=== PATIENT | male | born 1970 | race Hispanic/Latino ===

== ENCOUNTER 2018-04-13 11:38 | Inpatient (IN) | payer BC, OTHER ==
[~2018-04-13] VITALS: Ht 167.6 cm; Wt 101.2 kg
[~2018-04-13 11:38] MED LIST: ATORVASTATIN CA20 MG PO; DESLORATADINE5 MG; FENOFIBRATE145 MG PO; HYDROCHLOROTHIA25 MG PO; LANTUS 3ML100 UNITS/ SC; LISINOPRIL10 MG PO; METFORMIN HCL500 MG PO; METOPROLOL SUCC50 MG PO; METOPROLOL TART50 MG PO; MONTELUKAST SOD10 MG PO
[2018-04-13] MEDS ORDERED: SODIUM CHLORIDE 0.9% 1000ML 1,000 ML IV STA (11:46)
[2018-04-13] MEDS ORDERED: ONDANSETRON HCL INJ 2MG/ML 2ML 2 MG/ML VIAL IV STA (11:46)
[2018-04-13] MEDS ORDERED: METRONIDAZOLE 500MG/NS 100ML 100 ML IV ONE (12:00)
[2018-04-13] MEDS ORDERED: CEFEPIME 2 GM/NS 0.9% 100 ML 100 ML IV ONE (12:00)
[2018-04-13] MEDS ORDERED: PANTOPRAZOLE 40 MG 10ML VIAL IV NR (12:00)
[2018-04-13] MEDS ORDERED: MORPHINE SULFATE 5 MG/ML VIAL IV ONE (12:00)
[2018-04-13] MEDS ORDERED: MORPHINE SULFATE INJ 4 MG/ML INJ 1ML IV NR (12:15)
[2018-04-13 12:16] LABS: BASOPHILS # (AUTO) 0.1 (0.0-0.1); BASOPHILS % 0.4 % (0.0-1.0); EOSINOPHILS # (AUTO) 0.1 (0.0-0.4); EOSINOPHILS % 0.3 % (0.0-6.0); HEMATOCRIT 45.3 % (38.2-49.6); LYMPHOCYTES # (AUTO) 1.7 (1.0-3.2); MEAN CORPUSCULAR HEMOGLOBIN 27.6 pg (28-32); MEAN CORPUSCULAR HGB CONC 33.1 g/dL (31-35); MEAN CORPUSCULAR VOLUME 83.4 fL (81-99); MONOCYTES # (AUTO) 0.7 (0.2-0.8); NEUTROPHILS # (AUTO) 14.6 (2.1-6.9); NEUTROPHILS % 84.8 % (38.7-80.0); PLATELET COUNT 228 x10e3/uL (140-360); RED BLOOD COUNT 5.43 x10e6/uL (4.3-5.7); RED CELL DISTRIBUTION WIDTH 14.1 % (11.7-14.4)
[2018-04-13 12:32] LABS: INR 0.97; PROTHROMBIN TIME 13.8 seconds (11.9-14.5)
[2018-04-13 12:33] LABS: PARTIAL THROMBOPLASTIN TIME 37.1 seconds (23.8-35.5)
[2018-04-13 12:40] LABS: ALANINE AMINOTRANSFERASE 27 IU/L (0-55); ALBUMIN 3.6 g/dL (3.5-5.0); ALBUMIN/GLOBULIN RATIO 0.8 (0.8-2.0); ALKALINE PHOSPHATASE 93 IU/L (40-150); AMYLASE 54 U/L (25-125); ANION GAP 18.7 mmol/L (8-16); BLOOD UREA NITROGEN 13 mg/dL (7-26); BUN/CREATININE RATIO 10 (6-25); CALCIUM 9.6 mg/dL (8.4-10.2); CARBON DIOXIDE 21 mmol/L (22-29); CHLORIDE 96 mmol/L (98-107); CREATINE KINASE 99 IU/L (30-200); CREATININE, SERUM 1.24 mg/dL (0.72-1.25); EST GLOMERULAR FILTRATION RATE > 60 ML/MIN (60-); GLUCOSE 188 mg/dL (74-118); LIPASE 31 U/L (8-78); MAGNESIUM 2.1 MG/DL (1.3-2.1); POTASSIUM 3.7 mmol/L (3.5-5.1); SODIUM 132 mmol/L (136-145)
--- NOTE | 2018-04-13 13:09 | Diagnostic Imaging Report ---
Examination: Single AP view of the chest. COMPARISON: None. INDICATION: abdominal pain DISCUSSION: Lines/tubes: None. Lungs: The lungs are well inflated and clear. No pneumonia or pulmonary edema. Pleura: No pleural effusion or pneumothorax. Heart and mediastinum: The heart and the mediastinum are unremarkable. Bones and soft tissues: No acute bony abnormalities. IMPRESSION: 1. No acute cardiopulmonary abnormalities. Signed by: Dr. Vinny Early M.D. on 04/13/2018 1:06 PM
--- NOTE | 2018-04-13 13:59 | Diagnostic Imaging Report ---
EXAMINATION: CT of the abdomen and pelvis with contrast. TECHNIQUE: Helical CT images of the abdomen and pelvis were performed from the lung bases to the lesser trochanters after the intravenous administration of 150 cc of Isovue 300 and the oral administration of none. Coronal and sagittal reformatted images were obtained.Dose modulation, iterative reconstruction, and/or weight based adjustment of the mA/kV was utilized to reduce the radiation dose to as low as reasonably achievable. COMPARISON: None. CLINICAL HISTORY:Abdominal pain, nausea and vomiting DISCUSSION: ABDOMEN/PELVIS: LOWER THORAX:Unremarkable. HEPATOBILIARY: No focal hepatic lesions. No intra-or extrahepatic biliary ductal dilation. The gallbladder is normal. SPLEEN: No splenomegaly. PANCREAS: Peripancreatic inflammatory change no fluid collection. ADRENALS: No adrenal nodules. KIDNEYS/URETERS: 6 mm calculus right kidney. Ill-defined 1.2 cm hypodensity right kidney likely cyst. Scarring of the inferior pole of the left kidney. 2 mm calculus inferior pole left kidney. PELVIC ORGANS/BLADDER: The bladder is normal. PERITONEUM/RETROPERITONEUM: No free air or fluid. LYMPH NODES: No intra-abdominal, retroperitoneal, pelvic or inguinal lymphadenopathy. VESSELS: The celiac trunk,superior and inferior mesenteric and bilateral renal arteries are patent The portal, superior mesenteric and splenic veins are patent. GI TRACT: Colonic diverticulosis. No inflammatory change. BONES AND SOFT TISSUE: No bony destructive lesions. Fat-containing left inguinal hernia. IMPRESSION: Acute interstitial pancreatitis. No fluid collection. Bilateral nonobstructing renal calculi. Signed by: Dr. Vinny Early M.D. on 04/13/2018 1:56 PM
[2018-04-13 14:27] LABS: BILIRUBIN,URINE NEGATIVE (NEGATIVE); CLARITY,URINE SL CLOUDY (CLEAR); COLOR,URINE YELLOW (YELLOW); KETONES,URINE 1+ (NEGATIVE); LEUKOCYTE ESTERASE ,URINE NEGATIVE (NEGATIVE); NITRITE,URINE NEGATIVE (NEGATIVE); PROTEIN,URINE DIPSTICK NEGATIVE (NEGATIVE); URINE UROBILINOGEN 0.2 mg/dL (0.2 - 1)
[2018-04-13] MEDS ORDERED: HYDROMORPHONE 1MG/1ML INJ IV PRN (14:30)
[2018-04-13 14:36] LABS: AMORPHOUS SEDIMENT,URINE FEW (FEW)
[2018-04-13] MEDS ORDERED: IOPAMIDOL 370 MG/ML 200 ML INFUS..BTL INJ ONE (14:37)
[2018-04-13] MEDS ORDERED: SODIUM CHLORIDE 0.9% 50ML 50 ML ONE (14:37)
[2018-04-13 14:41] LABS: CHOL/HDL RATIO 11.3 (3.9-4.7); CHOLESTEROL 418 MD/DL (0-199); HDL CHOLESTEROL 37 MG/DL (40-60); TRIGLYCERIDES 864 MG/DL (0-149)
[2018-04-13] MEDS: HYDROMORPHONE 2MG/ML 2 MG/ML ML IV PRN ×2 (15:38→21:38)
[2018-04-13] MEDS: ONDANSETRON HCL INJ 2MG/ML 2ML 2 MG/ML VIAL IV PRN ×2 (15:38→21:38)
[2018-04-13] MEDS: SODIUM CHLORIDE 0.9% 1000ML 1,000 ML IV SCH ×2 (15:38→22:43)
--- OUTSIDE RECORDS SUMMARY | 2018-04-13 16:14 | XMS REPORT ---
Author Author [facility] Address Unknown Phone Unavailable Care Team Providers Care Communication Technician Name Role Phone Karyn TIJERINA Unavailable Unavailable Problems This patient has no known problems. Allergies, Adverse Reactions, Alerts This patient has no known allergies or adverse reactions. Medications This patient has no known medications. Results Test Description Test Time Test Comments Text Results Atomic Results Result Comments CT ABDOMEN/PELVIS W 2018-04-13 13:52:00 [facility] [address] [address] Patient Name: REG ESPINOSA MR #: [id number] : 1970 Age/Sex: 47/M Req #: [id number] Adm Physician: Ordered by: FLORIAN TIJERINA MD Report #: [id number] Location: ER Room/Bed: Procedure: [id number] CT/CT ABDOMEN/PELVIS W Exam Date: 04/13/18 Exam Time: 1323 REPORT STATUS: Signed EXAMINATION: CT of the abdomen and pelvis with contras t. TECHNIQUE: Helical CT images of the abdomen and pelvis were performed from the lung bases to the lesser trochanters after the intravenous administration of 150 cc of Isovue 300 and the oral administration of none. Coronal and sagittal reformatted images were obtained.Dose modulation, iterative reconstruction, and/or weight based adjustment of the mA/kV was utilized to reduce the radiation dose to as low as reasonably achievable. COMPARISON: None. CLINICAL HISTORY:Abdominal pain, nausea and vomiting DISCUSSION: ABDOMEN/PELVIS: LOWER THORAX:Unremarkable. HEPATOBILIARY: No focal hepatic lesions. No intra-or extrahepatic biliary ductal dilation. The gallbladder is normal. SPLEEN: No splenomegaly. PANCREAS: Peripancreatic inflammatory change no fluid collection. ADRENALS: No adrenal nodules. KIDNEYS/URETERS: 6 mm calculus right kidney. Ill-defined 1.2 cm hypodensity right kidney likely cyst. Scarring of the infer ior pole of the left kidney. 2 mm calculus inferior pole left kidney. PELVIC ORGANS/BLADDER: The bladder is normal. PERITONEUM/RETROPERITONEUM: No free air or fluid. LYMPH NODES: No intra-abdominal, retroperitoneal, pelvic or inguinal lymphadenopathy. VESSELS: The celiac trunk,superior and inferior mesenteric and bilateral renal arteries are patent The portal, superior mesenteric and splenic veins are patent. GI TRACT: Colonic diverticulosis. No inflammatory change. BONES AND SOFT TISSUE: No bony destructive lesions. Fat-containing left inguinal hernia. IMPRESSION: Acute interstitial pancreatitis. No fluid collection. Bilateral nonobstructing renal calculi. Signed by: Dr. Daisha Saenz M.D. on 04/13/2018 1:56 PM Dictated By: DAISHA SAENZ MD 1356 Transcribed By: VICTORINO on 04/13/18 1356 COPY TO: FLORIAN TIJERINA MD CHEST SINGLE (PORTABLE) 2018-04-13 13:05:00 [address] [address] Patient Name: REG ESPINOSA MR #: [id number] : 1970 Age/Sex: 47/M Req #: [id number] Adm Physician: Ordered by: FLORIAN TIJERINA MD Report #: [id number] Location: ER Room/Bed: Procedure: [id number] DX/CHEST SINGLE (PORTABLE) Exam Date: 04/13/18 Exam Time: 1150 REPORT STATUS: Signed Examination: Single AP view of the chest. GEORGE RISON: None. INDICATION: abdominal pain DISCUSSION: Lines/tubes: None. Lungs: The lungs are well inflated and clear. No pneumonia or pulmonary edema. Pleura: No pleural effusion or pneumothorax. Heart and mediastinum: The heart and the mediastinum are unremarkable. Bones and soft tissues: No acute bony abnormalities. IMPRESSION: 1. No acute cardiopulmonary abnormalities. Signed by: Dr. Daisha Saenz M.D. on 04/13/2018 1:06 PM Dictated By: DAISHA SAENZ MD 1306 Transcribed By: VICTORINO on 04/13/18 1306 COPY TO: FLORIAN TIJERINA MD
[2018-04-13] MEDS ORDERED: BENICAR20 MG PO (18:29)
[2018-04-13] MEDS ORDERED: METFORMIN HCL500 MG PO (18:29)
[2018-04-13] MEDS: METRONIDAZOLE 500MG/NS 100ML 100 ML IV SCH (18:29)
[2018-04-13] MEDS ORDERED: LEXAPRO10 MG PO (18:29)
[2018-04-13] MEDS ORDERED: farxiga PO (18:29)
[2018-04-13] MEDS ORDERED: LOSARTAN-HCTZ1 EACH PO (20:27)
--- NOTE | 2018-04-13 20:31 | NUR ---
REPORT CALLED TO RN ROOM 110.
[2018-04-13 20:40] VITALS: BP 153/89
[2018-04-13 20:55] VITALS: BP 153/89
--- NOTE | 2018-04-13 20:55 | NUR ---
PATIENT IS A NEW ADMIT THAT ARRIVED VIA STRETCHER. PATIENT IS AWAKE AND TALKING. PATIENT HAS BEEN HELPED INTO THE BED. BED IS IN LOWEST POSITION AND CALL ALLISON IS WITHIN REACH. WILL CONTINUE TO MONITOR PATIENT.
[2018-04-13 21:16] LABS: CREATINE KINASE 99 IU/L (30-200)
--- NOTE | 2018-04-13 21:30 | NUR ---
PATIENT IS ASKING IF HE CAN SUCK ON ICE CHIPS TO HELP WITH DRY MOUTH. GI DOCTOR NOTIFIED. RECEIVED NEW ORDER TO ALLOW PATIENT TO SUCK ON ICE CHIPS AND SPIT OUT WATER FOR DRY MOUTH.
[2018-04-13] MEDS ORDERED: FENOFIBRATE 145 MG TAB PO STA (22:36)
[2018-04-13] MEDS: CEFEPIME 2 GM/NS 0.9% 100 ML 100 ML IV SCH (22:42)
[2018-04-14] VITALS (7 sets, daily range): BP systolic 122–154; BP diastolic 67–89
[2018-04-14] MEDS: METRONIDAZOLE 500MG/NS 100ML 100 ML IV SCH ×4 (00:45→18:31)
[2018-04-14] MEDS: SODIUM CHLORIDE 0.9% 1000ML 1,000 ML IV SCH ×7 (05:42→21:41)
[2018-04-14 06:33] LABS: BASOPHILS % 0.3 % (0.0-1.0); EOSINOPHILS # (AUTO) 0.2 (0.0-0.4); EOSINOPHILS % 1.2 % (0.0-6.0); HEMATOCRIT 39.8 % (38.2-49.6); LYMPHOCYTES # (AUTO) 1.3 (1.0-3.2); LYMPHOCYTES % 9.9 % (18.0-39.1); MEAN CORPUSCULAR HEMOGLOBIN 27.5 pg (28-32); MEAN CORPUSCULAR HGB CONC 32.7 g/dL (31-35); MEAN CORPUSCULAR VOLUME 84.3 fL (81-99); MONOCYTES # (AUTO) 0.7 (0.2-0.8); MONOCYTES % 5.6 % (4.4-11.3); NEUTROPHILS # (AUTO) 10.4 (2.1-6.9); NEUTROPHILS % 82.5 % (38.7-80.0); PLATELET COUNT 184 x10e3/uL (140-360); RED BLOOD COUNT 4.72 x10e6/uL (4.3-5.7); RED CELL DISTRIBUTION WIDTH 14.3 % (11.7-14.4)
[2018-04-14 06:47] LABS: ALANINE AMINOTRANSFERASE 18 IU/L (0-55); ALBUMIN 2.7 g/dL (3.5-5.0); ALBUMIN/GLOBULIN RATIO 0.8 (0.8-2.0); ALKALINE PHOSPHATASE 81 IU/L (40-150); AMYLASE 43 U/L (25-125); ANION GAP 15.6 mmol/L (8-16); BLOOD UREA NITROGEN 13 mg/dL (7-26); BUN/CREATININE RATIO 14 (6-25); CALCIUM 8.3 mg/dL (8.4-10.2); CARBON DIOXIDE 19 mmol/L (22-29); CHLORIDE 104 mmol/L (98-107); CREATININE, SERUM 0.91 mg/dL (0.72-1.25); EST GLOMERULAR FILTRATION RATE > 60 ML/MIN (60-); GLUCOSE 139 mg/dL (74-118); LIPASE 29 U/L (8-78); POTASSIUM 3.6 mmol/L (3.5-5.1); SODIUM 135 mmol/L (136-145)
[2018-04-14 07:09] LABS: CREATINE KINASE 84 IU/L (30-200)
[2018-04-14] MEDS: FENOFIBRATE 145 MG TAB PO SCH (09:00)
[2018-04-14] MEDS: HYDROMORPHONE 2MG/ML 2 MG/ML ML IV PRN ×2 (09:00→15:10)
[2018-04-14] MEDS: ONDANSETRON HCL INJ 2MG/ML 2ML 2 MG/ML VIAL IV PRN ×2 (09:00→15:10)
[2018-04-14] MEDS: CEFEPIME 2 GM/NS 0.9% 100 ML 100 ML IV SCH ×2 (11:30→22:12)
--- NOTE | 2018-04-14 11:52 | NUR ---
MD GARCIA INTO SEE PT, DISCUSSED POC
--- NOTE | 2018-04-14 19:10 | NUR ---
REPORT RECEIVED FROM OFF GOING NURSE, PT RESTING IN BED ALERT AND ORIENTED, NO DISTRESS NOTED, FAMILY AT BEDSIDE, DENIES NEEDS, CALL LIGHT IN REACH, INSTRUCTED TO CALL WITH NEEDS, IV INFUSING PER ORDER
[2018-04-15] MEDS: HYDROMORPHONE 2MG/ML 2 MG/ML ML IV PRN ×2 (00:21→20:09)
[2018-04-15] MEDS: ONDANSETRON HCL INJ 2MG/ML 2ML 2 MG/ML VIAL IV PRN ×2 (00:35→20:09)
[2018-04-15] MEDS: SODIUM CHLORIDE 0.9% 1000ML 1,000 ML IV SCH ×7 (01:09→20:52)
[2018-04-15 04:00] VITALS: BP 118/68
[2018-04-15] MEDS: METRONIDAZOLE 500MG/NS 100ML 100 ML IV SCH ×4 (05:18→18:27)
--- NOTE | 2018-04-15 05:20 | NUR ---
PT RESTING IN BED ALERT AND ORIENTED, NO DISTRESS NOTED, DENIES NEEDS, CALL LIGHT IN REACH, INSTRUCTED TO CALL WITH NEEDS, IV INFUSING PER ORDER, FAMILY AT BEDSIDE
[2018-04-15 06:43] LABS: BASOPHILS % 0.5 % (0.0-1.0); EOSINOPHILS # (AUTO) 0.2 (0.0-0.4); EOSINOPHILS % 1.7 % (0.0-6.0); HEMATOCRIT 34.5 % (38.2-49.6); HEMOGLOBIN 12.1 g/dL (14.0-18.0); LYMPHOCYTES # (AUTO) 1.5 (1.0-3.2); LYMPHOCYTES % 16.7 % (18.0-39.1); MEAN CORPUSCULAR HEMOGLOBIN 28.6 pg (28-32); MEAN CORPUSCULAR HGB CONC 35.1 g/dL (31-35); MEAN CORPUSCULAR VOLUME 81.6 fL (81-99); MONOCYTES # (AUTO) 0.5 (0.2-0.8); MONOCYTES % 6.1 % (4.4-11.3); NEUTROPHILS # (AUTO) 6.5 (2.1-6.9); NEUTROPHILS % 74.5 % (38.7-80.0); PLATELET COUNT 181 x10e3/uL (140-360); RED BLOOD COUNT 4.23 x10e6/uL (4.3-5.7); RED CELL DISTRIBUTION WIDTH 14.3 % (11.7-14.4)
[2018-04-15 07:02] LABS: ALANINE AMINOTRANSFERASE 15 IU/L (0-55); ALBUMIN 2.4 g/dL (3.5-5.0); ALBUMIN/GLOBULIN RATIO 0.8 (0.8-2.0); ALKALINE PHOSPHATASE 83 IU/L (40-150); AMYLASE 34 U/L (25-125); ANION GAP 12.5 mmol/L (8-16); BLOOD UREA NITROGEN 9 mg/dL (7-26); BUN/CREATININE RATIO 12 (6-25); CALCIUM 7.9 mg/dL (8.4-10.2); CARBON DIOXIDE 20 mmol/L (22-29); CHLORIDE 110 mmol/L (98-107); CREATININE, SERUM 0.78 mg/dL (0.72-1.25); EST GLOMERULAR FILTRATION RATE > 60 ML/MIN (60-); GLUCOSE 110 mg/dL (74-118); LIPASE 17 U/L (8-78); POTASSIUM 3.5 mmol/L (3.5-5.1); SODIUM 139 mmol/L (136-145)
[2018-04-15 08:09] VITALS: BP 131/77
[2018-04-15] MEDS: FENOFIBRATE 145 MG TAB PO SCH (10:00)
--- NOTE | 2018-04-15 10:48 | NUR ---
MD GARCIA INTO SEE PT, DISCUSSED POC
[2018-04-15] MEDS ORDERED: POTASSIUM CHLORIDE 10MEQ EA PO ONE (11:00)
[2018-04-15] MEDS: CEFEPIME 2 GM/NS 0.9% 100 ML 100 ML IV SCH ×2 (11:15→23:00)
[2018-04-15 11:39] VITALS: BP 131/77
[2018-04-15 13:26] VITALS: BP 146/83
[2018-04-15 16:53] VITALS: BP 131/78
--- NOTE | 2018-04-15 18:40 | NUR ---
DENIES PAIN AT THIS TIME, REPORTS TOLERATING PO, CALL LIGHT WITHIN REACH
[2018-04-15 20:00] VITALS: BP 154/82
[2018-04-15] MEDS: ATORVASTATIN 40 MG TAB PO SCH (20:52)
[2018-04-16] VITALS (8 sets, daily range): BP systolic 140–175; BP diastolic 82–97
[2018-04-16 00:06] LABS: AMYLASE 42 U/L (25-125); LIPASE 247 U/L (8-78)
[2018-04-16] MEDS: SODIUM CHLORIDE 0.9% 1000ML 1,000 ML IV SCH ×8 (00:29→23:49)
[2018-04-16] MEDS: METRONIDAZOLE 500MG/NS 100ML 100 ML IV SCH ×4 (00:30→18:10)
[2018-04-16] MEDS: HYDROMORPHONE 2MG/ML 2 MG/ML ML IV PRN ×3 (05:20→23:30)
--- NOTE | 2018-04-16 06:08 | NUR ---
BS IS 118 .PT C/O PAIN .AND GIVEN ORDERED DILAUDID .PT RESTING CALL ALLISON WITH IN REACH .CONTINUE TO MONITOR
[2018-04-16 06:19] LABS: BASOPHILS # (AUTO) 0.1 (0.0-0.1); BASOPHILS % 0.7 % (0.0-1.0); EOSINOPHILS # (AUTO) 0.2 (0.0-0.4); EOSINOPHILS % 2.1 % (0.0-6.0); HEMATOCRIT 37.6 % (38.2-49.6); HEMOGLOBIN 12.5 g/dL (14.0-18.0); LYMPHOCYTES # (AUTO) 1.8 (1.0-3.2); LYMPHOCYTES % 21.5 % (18.0-39.1); MEAN CORPUSCULAR HEMOGLOBIN 27.8 pg (28-32); MEAN CORPUSCULAR HGB CONC 33.2 g/dL (31-35); MEAN CORPUSCULAR VOLUME 83.6 fL (81-99); MONOCYTES # (AUTO) 0.5 (0.2-0.8); MONOCYTES % 5.4 % (4.4-11.3); NEUTROPHILS % 69.8 % (38.7-80.0); PLATELET COUNT 203 x10e3/uL (140-360); RED CELL DISTRIBUTION WIDTH 14.4 % (11.7-14.4)
[2018-04-16 06:48] LABS: ALANINE AMINOTRANSFERASE 19 IU/L (0-55); ALBUMIN 2.6 g/dL (3.5-5.0); ALBUMIN/GLOBULIN RATIO 0.8 (0.8-2.0); ALKALINE PHOSPHATASE 93 IU/L (40-150); ANION GAP 12.6 mmol/L (8-16); BLOOD UREA NITROGEN 8 mg/dL (7-26); BUN/CREATININE RATIO 10 (6-25); CARBON DIOXIDE 19 mmol/L (22-29); CHLORIDE 109 mmol/L (98-107); CREATININE, SERUM 0.77 mg/dL (0.72-1.25); EST GLOMERULAR FILTRATION RATE > 60 ML/MIN (60-); GLUCOSE 124 mg/dL (74-118); POTASSIUM 3.6 mmol/L (3.5-5.1); SODIUM 137 mmol/L (136-145)
--- NOTE | 2018-04-16 07:24 | NUR ---
REPORT GIVEN TO THE ONCOMING NURSE
[2018-04-16] MEDS: FENOFIBRATE 145 MG TAB PO SCH (09:00)
[2018-04-16] MEDS: CEFEPIME 2 GM/NS 0.9% 100 ML 100 ML IV SCH ×2 (11:33→23:00)
[2018-04-16 11:43] LABS: AMYLASE 36 U/L (25-125); LIPASE 21 U/L (8-78)
--- NOTE | 2018-04-16 12:11 | NUR ---
SPOKE WITH MD Adriana CALZADA REGARDING NEW LAB WORK AMYLASE AND LIPASE AND NPO STATUS. ORDERS TO CHANGE PT TO CLEAR GIVEN AT THIS TIME
[2018-04-16] MEDS: ONDANSETRON HCL INJ 2MG/ML 2ML 2 MG/ML VIAL IV PRN (17:50)
--- NOTE | 2018-04-16 20:16 | NUR ---
RECEIVED PT IN BED AOX3 .DENIES PAIN NO ACUTE DISTRESS NOTED .FAMILY AT THE BEDSIDE .CALL LIGHT WITH IN REACH
[2018-04-16] MEDS: ATORVASTATIN 40 MG TAB PO SCH (21:00)
[2018-04-17] VITALS (9 sets, daily range): BP systolic 151–177; BP diastolic 84–97
--- NOTE | 2018-04-17 00:28 | NUR ---
DR. Adriana CALZADA DOING ROUNDS. NEW ORDER RCV FOR NPO DIET, STAT AMYLASE AND LIPASE.
[2018-04-17 02:11] LABS: AMYLASE 31 U/L (25-125); LIPASE 18 U/L (8-78)
[2018-04-17] MEDS ORDERED: LOSARTAN POTASSIUM 25 MG TAB PO ONE (03:15)
--- NOTE | 2018-04-17 03:33 | NUR ---
AMYLASE IS 31 [address] CALZADA .NEW ORDER TO NPO EXCEPT MEDS.REDUCED THE IV FLUID TO 275 ML/HR.CALL LIGHT WITH IN REACH .CONTINUE TO MONITOR
[2018-04-17] MEDS: SODIUM CHLORIDE 0.9% 1000ML 1,000 ML IV SCH ×6 (05:33→21:51)
[2018-04-17] MEDS: METRONIDAZOLE 500MG/NS 100ML 100 ML IV SCH ×5 (05:35→23:38)
--- NOTE | 2018-04-17 06:31 | NUR ---
PT RESTING C/O PAIN AND GIVEN ORDERED PAIN MEDICATION .CALL LIGHT WITH IN REACH
[2018-04-17 07:00] LABS: BASOPHILS # (AUTO) 0.1 (0.0-0.1); BASOPHILS % 0.6 % (0.0-1.0); EOSINOPHILS # (AUTO) 0.2 (0.0-0.4); EOSINOPHILS % 2.2 % (0.0-6.0); HEMATOCRIT 38.4 % (38.2-49.6); HEMOGLOBIN 12.8 g/dL (14.0-18.0); LYMPHOCYTES # (AUTO) 1.5 (1.0-3.2); LYMPHOCYTES % 19.6 % (18.0-39.1); MEAN CORPUSCULAR HEMOGLOBIN 27.7 pg (28-32); MEAN CORPUSCULAR HGB CONC 33.3 g/dL (31-35); MEAN CORPUSCULAR VOLUME 83.1 fL (81-99); MONOCYTES # (AUTO) 0.5 (0.2-0.8); MONOCYTES % 6.8 % (4.4-11.3); NEUTROPHILS # (AUTO) 5.4 (2.1-6.9); NEUTROPHILS % 70.2 % (38.7-80.0); PLATELET COUNT 227 x10e3/uL (140-360); RED BLOOD COUNT 4.62 x10e6/uL (4.3-5.7); RED CELL DISTRIBUTION WIDTH 14.3 % (11.7-14.4)
--- NOTE | 2018-04-17 07:12 | NUR ---
PT C/O HEARTBURN .PAGED DR CALZADA AND WAITING FOR THE CALL BACK .REPORT GIVEN TO THE ON COMING NURSE
[2018-04-17 07:18] LABS: ANION GAP 12.6 mmol/L (8-16); BLOOD UREA NITROGEN 6 mg/dL (7-26); BUN/CREATININE RATIO 8 (6-25); CARBON DIOXIDE 22 mmol/L (22-29); CHLORIDE 107 mmol/L (98-107); EST GLOMERULAR FILTRATION RATE > 60 ML/MIN (60-); GLUCOSE 115 mg/dL (74-118); POTASSIUM 3.6 mmol/L (3.5-5.1); SODIUM 138 mmol/L (136-145)
--- NOTE | 2018-04-17 08:05 | NUR ---
darci lomeli for high bp of 176/97, awaiting for call back
[2018-04-17] MEDS: LOSARTAN POTASSIUM 25 MG TAB PO SCH ×2 (09:00→16:38)
[2018-04-17] MEDS: HYDRALAZINE HCL 20 MG/ML VIAL IV PRN ×2 (09:00→14:45)
[2018-04-17] MEDS: HYDROCHLOROTHIAZIDE 25 MG TAB PO SCH ×2 (09:00→16:39)
[2018-04-17] MEDS: FENOFIBRATE 145 MG TAB PO SCH (09:00)
[2018-04-17] MEDS: CEFEPIME 2 GM/NS 0.9% 100 ML 100 ML IV SCH ×2 (11:28→23:09)
--- NOTE | 2018-04-17 16:15 | NUR ---
CASE MANAGEMENT INITIAL ASSESSMENT Asset Protection Manager to bedside to discuss plan of care with patient/family. CM/SW role and care transitions discussed. Anticipated discharge plan discussed along with duration of care. CM/SW discussed patients right to make decisions in care. CM/SW work hours given. Patient lives: with son Rylan Cantu Admit/Transfer: thru ED Hospital/ER visits since last admit: last hospitalization was approximately 1 year ago, no ED visits POA/Emergency contact: Sharee Cantu (ex-) [phone] Current/Previous Home Health: none PCP/Follow-up Care: Dr. Ricky Terry; pt stated he may follow up with Dr. Stevenson after discharge. CM stressed importance of following up within 7 days of discharge. Current/Previous DME: none Medications (referring to index hospitalization or the first time you were in the hospital) a. Were changes made in your medications when you were in the hospital on [date of index hospitalization]? no b. Did you understand the changes? n/a c. Were you able to obtain your new medications right away? n/a d. Were you able to take your medications like the doctor wanted you to? n/a e. Did the hospital give you an accurate, easy to understand list of medications when you left? n/a Scale of 1-10 how comfortable does patient feel with disease management in outpatient settin Other Services: none Employment Status: employed at [employer] Areas of Concerns: none Referral Needs: none Education Needs: medical management IMM/LERMA given and signed (if applicable): n/a Goal for discharge: home as soon as possible CM/SW left business card at the bedside with contact information. Name and number was also written on the patients whiteboard. Patient verbalized understanding of discussion. CM will follow-up with ongoing discharge and transition of care needs.
--- NOTE | 2018-04-17 18:44 | NUR ---
SPOKE WITH MD Radha CALZADA ABOUT BP REMAINING HIGH. ORDERED CATAPRESS PATCH AT THIS TIME
[2018-04-17] MEDS ORDERED: CLONIDINE HCL 0.2 MG/24 HR 1 EA PATCH TOP SCH (19:00)
[2018-04-17] MEDS: ATORVASTATIN 40 MG TAB PO SCH (21:51)
[2018-04-17] MEDS: ACETAMINOPHEN 325 MG TAB PO PRN (22:47)
--- NOTE | 2018-04-17 23:09 | NUR ---
DR.HADDAD QIU IS IN THE UNIT TO SEE THE PT.ORDERED DIATERY CONSULTATION TOMORROW.IV IS LEAKING.NEW IV STARTED RFA#22G.PATENT.
[2018-04-18] VITALS (7 sets, daily range): BP systolic 142–176; BP diastolic 80–98
[2018-04-18] MEDS: SODIUM CHLORIDE 0.9% 1000ML 1,000 ML IV SCH ×3 (04:06→08:25)
[2018-04-18] MEDS: METRONIDAZOLE 500MG/NS 100ML 100 ML IV SCH ×2 (05:58→12:07)
--- NOTE | 2018-04-18 06:50 | NUR ---
Report given to the oncoming rn.walking rounds done.stable condition.
[2018-04-18] MEDS: LOSARTAN POTASSIUM 25 MG TAB PO SCH (08:25)
[2018-04-18] MEDS: FENOFIBRATE 145 MG TAB PO SCH (08:25)
[2018-04-18] MEDS: HYDROCHLOROTHIAZIDE 25 MG TAB PO SCH (08:25)
--- NOTE | 2018-04-18 11:02 | NUR ---
Per Dr. Stevenson, advancing diet, if pt tolerates then he will discharge home.
[2018-04-18] MEDS: CEFEPIME 2 GM/NS 0.9% 100 ML 100 ML IV SCH (11:32)
[2018-04-18] MEDS: HYDRALAZINE HCL 20 MG/ML VIAL IV PRN (12:07)
[2018-04-18] MEDS: ACETAMINOPHEN 325 MG TAB PO PRN (13:24)
--- NOTE | 2018-04-18 15:10 | NUR ---
Nutrition Screen Note RD Recommendation for Physician: - Continue GI Soft diet as tolerated, consider low fat diet restriction - Diet education provided Plan of Care: RD following, monitoring for tolerance and adequacy Nutrition reason for involvement: MD Consult Primary Diagnose(s): pancreatitis, abdominal pain PMH: DM, TIA, HTN Ht: 66 in Wt: 223 lb BMI: 36 kg/m2 IBW: [address] Assessment: (04/18) 47 YOM admitted for pancreatitis, pt seen today per MD consult- no reason specified. Pt advanced to GI soft diet at lunch and pending discharge if tolerating diet. Pt reports tolerating solid foods and no c/o abdominal pain or GI distress. 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 Pt provided with pancreatitis diet education handout, encouraged compliance with fat intake recommendations- pt with no questions at this time. Chart reviewed. Labs and meds reviewed, lipase WNL. Will monitor and continue to follow. Current Diet: GI Soft Malnutrition Evaluation (04/18/18) The patient does not meet criteria for a specified degree of malnutrition at this time. Will re-evaluate at follow-up as appropriate. Diet Education Needs Assessment: Diet education indicated, pt receptive. Learner(s): pt Barriers: none Cultural/Language Modifications: none Readiness: ready Method: handouts, discussion Topics: pancreatitis nutrition therapy Understanding/Compliance: good Nutrition Care Level: Low Signed: Marcelle Kerns RD, LD, [facility]
[2018-04-18] MEDS ORDERED: FENOFIBRATE145 MG PO (16:07)
--- NOTE | 2018-04-18 16:48 | NUR ---
Right Forearm IV discontinued. No signs of infiltration noted. 2x2 gauze and tape placed. Taken via wheelchair to personal car. Accompanied by family members. AAOX4 to time, person, place, situation. Respirations even and unlabored. Denies any pain. Discharge instructions, rx, and all personal belongings taken with patient.
== END 2018-04-18 16:48 | disposition home or self-care (01) | DRG 439 ==
LOC: ER 11:38 → ERHOLD 16:12 → MED/SURG 21:05
DX: K85.00 Idiopathic acute pancreatitis without necrosis or infection (principal); N17.9 Acute kidney failure, unspecified; E78.1 Pure hyperglyceridemia; I10 Essential (primary) hypertension; E11.9 Type 2 diabetes mellitus without complications; K21.9 Gastro-esophageal reflux disease without esophagitis; E78.5 Hyperlipidemia, unspecified; E66.01 Morbid (severe) obesity due to excess calories; Z68.36 Body mass index [BMI] 36.0-36.9, adult; Z79.84 Long term (current) use of oral hypoglycemic drugs
CPT/HCPCS: 36415; 71045; 74177; 80048; 80053; 80061; 81001; 82150; 82550; 82553; 82948; 83605; 83690; 83735; 84478; 84484; 85025; 85610; 85730; 87040; 87086; 93005; 99284; J0360; J2270; J2405; J7030; Q9967

== ENCOUNTER → 2018-05-05 | Day surgery (SDC) | payer OTHER ==
[~2018-05-05] MED LIST changes: +ASPIR 8181 MG PO; +BENICAR20 MG PO; +FENTANYL CITRATE/PF 100MCG/2 ML INJ ONE; +HYOSCYAMINE SULFATE 0.5 MG/ML INJ ONE; +LEXAPRO10 MG PO; +LOSARTAN-HCTZ1 EACH PO; +MIDAZOLAM HCL 2 MG/2 ML VIAL ONE; +PROPOFOL IV EMULSION 10 MG/ML 20 ML VIAL ONE; +PROPOFOL IV EMULSION 10 MG/ML 50 ML VIAL ONE; +VITAMIN C1000 MG PEG; +XYZAL5 MG PO; +farxiga PO
[2018-05-05 21:43] LABS: WBC,FECAL (FECAL LACTOFERRIN) NEGATIVE (NEGATIVE)
--- NOTE | 2018-05-06 03:02 | Operative Report ---
DATE OF PROCEDURE: 05/05/2018 SURGEON: Marty Stevenson MD PROCEDURE: EGD with biopsies and colonoscopy with polypectomy and biopsies. INDICATIONS FOR EGD: Upper abdominal pain and bloating. INDICATION FOR COLONOSCOPY: Chronic diarrhea. MEDICATIONS: The patient was done under MAC. Please see anesthesiologist's note. PROCEDURE IN DETAIL: With the patient in left lateral decubitus position, a flexible fiberoptic Olympus gastroscope was introduced into the esophagus under direct visualization without any difficulty. There was some patchy erythema noted in the distal esophagus. There was also some erosions noted. The scope was then advanced with ease into the stomach. Mucosa overlying the antrum and the body revealed some patchy intense erythema and low-grade edema, and biopsies were obtained and sent to stain for H pylori. A minute ulcer was noted in the distal body along the posterior wall with some stigmata of recent hemorrhage and biopsies were obtained. Pylorus was of normal contour and shape, was intubated with ease and the scope was advanced all the way to the second portion of the duodenum. The scope was then withdrawn slowly and biopsies were obtained from the proximal second portion and duodenal bulb to rule out sprue. The scope was then withdrawn back into the stomach and retroflexed, and mucosa overlying the fundus and cardia appeared to be within normal limits. The scope was then straightened out and was subsequently withdrawn. The patient tolerated the procedure well. IMPRESSION: 1. Distal erosive esophagitis. 2. Gastritis, biopsied. Biopsies sent to stain for Helicobacter pylori. 3. Gastric ulcer, minute, distal body posterior wall with stigmata of recent hemorrhage, biopsied. 4. Rule out sprue. PLAN: Follow up histology. Initiate Protonix 40 mg 1 p.o. q.a.m. before meals The patient was then turned around and after adequate lubrication of the anal canal, the flexible fiberoptic Olympus colonoscope was inserted into the rectum with ease and advanced all the way to the cecum. Mucosa overlying the cecum appeared to be within normal limits. The ileocecal valve was intubated and the scope was advanced into the terminal ileum. Biopsies were obtained. The scope was then withdrawn back into the colon. It was then withdrawn slowly and 1 polyp was snared from the ascending colon. Polypectomy site was hemoclipped, the transverse appeared to be within normal limits. One polyp was hot biopsied and one polyp was snared from the descending colon. Diverticular disease was noted in the distal descending and the sigmoid colon. The mucosa overlying the distal descending sigmoid and rectum revealed some patchy mild inflammatory changes and random biopsies were obtained. The scope was then retroflexed into the distal rectum and small internal hemorrhoids were noted, none of which was actively bleeding. The scope was then straightened out. The scope was subsequently withdrawn after securing an adequate stool specimen, that was sent for the appropriate stool studies. The patient tolerated the procedure well. IMPRESSION: 1. Ascending colon polyp, snared and site hemoclipped. 2. Descending colon polyps x2, one snared and one hot biopsied, and both sides were hemoclipped. 3. Diverticulosis. 4. Mild patchy left-sided colitis. 5. Internal hemorrhoids, none actively bleeding. PLAN: Follow up histology. Follow up stool studies. Initiate Bentyl 10 mg 1 p.o. t.i.d. VSL #3 one p.o. daily. The patient might benefit from a followup colonoscopy in 3 years. Marty Stevenson MD [facility]/ALINL /[id number] cc: Vinny Terry DO
[2018-05-06 13:13] LABS: C DIFFICILE TOXIN A&B AMP PROB **POSITIVE** (NEGATIVE)
== END | disposition home or self-care (01) ==
LOC: OR 10:44
PROVIDERS: ATTEND Internal Medicine Gastroenterology
DX: K29.00 Acute gastritis without bleeding (principal); D12.2 Benign neoplasm of ascending colon; D12.4 Benign neoplasm of descending colon; K25.9 Gastric ulcer, unspecified as acute or chronic, without hemorrhage or perforation; R14.0 Abdominal distension (gaseous); K63.5 Polyp of colon; K57.30 Diverticulosis of large intestine without perforation or abscess without bleeding; K51.50 Left sided colitis without complications; K64.8 Other hemorrhoids; K57.90 Diverticulosis of intestine, part unspecified, without perforation or abscess without bleeding; G47.33 Obstructive sleep apnea (adult) (pediatric); I10 Essential (primary) hypertension; E78.5 Hyperlipidemia, unspecified; K85.90 Acute pancreatitis without necrosis or infection, unspecified; E11.9 Type 2 diabetes mellitus without complications; Z79.84 Long term (current) use of oral hypoglycemic drugs; R10.13 Epigastric pain; F32.9 Major depressive disorder, single episode, unspecified; R19.7 Diarrhea, unspecified; Z88.0 Allergy status to penicillin; K21.0 Gastro-esophageal reflux disease with esophagitis
CPT/HCPCS: 36415; 43239; 45384; 45385; 82948; 83630; 83993; 87045; 87177; 87328; 87493; 93005; J1980; J2250; J2704 ×2

== ENCOUNTER 2019-07-14 16:43 | Inpatient (IN) | payer OTHER, SELFPAY ==
[~2019-07-14] VITALS: Ht 153.9 cm; Wt 97.2 kg
[~2019-07-14 16:43] MED LIST changes: -FENTANYL CITRATE/PF 100MCG/2 ML INJ ONE; -HYOSCYAMINE SULFATE 0.5 MG/ML INJ ONE; -MIDAZOLAM HCL 2 MG/2 ML VIAL ONE; -PROPOFOL IV EMULSION 10 MG/ML 20 ML VIAL ONE; -PROPOFOL IV EMULSION 10 MG/ML 50 ML VIAL ONE
[2019-07-14] MEDS ORDERED: LABETALOL HCL 5 MG/ML 20ML VIAL IV NR ×2 (17:00→18:45)
[2019-07-14 17:17] LABS: BASOPHILS # (AUTO) 0.1 (0.0-0.1); BASOPHILS % 0.7 % (0.0-1.0); EOSINOPHILS # (AUTO) 0.1 (0.0-0.4); EOSINOPHILS % 0.9 % (0.0-6.0); HEMATOCRIT 46.2 % (38.2-49.6); HEMOGLOBIN 16.2 g/dL (14.0-18.0); LYMPHOCYTES # (AUTO) 2.4 (1.0-3.2); LYMPHOCYTES % 29.5 % (18.0-39.1); MEAN CORPUSCULAR HEMOGLOBIN 28.8 pg (28-32); MEAN CORPUSCULAR HGB CONC 35.1 g/dL (31-35); MEAN CORPUSCULAR VOLUME 82.1 fL (81-99); MONOCYTES # (AUTO) 0.3 (0.2-0.8); MONOCYTES % 3.8 % (4.4-11.3); NEUTROPHILS # (AUTO) 5.2 (2.1-6.9); NEUTROPHILS % 64.6 % (38.7-80.0); PLATELET COUNT 212 x10e3/uL (140-360); RED BLOOD COUNT 5.63 x10e6/uL (4.3-5.7)
[2019-07-14 17:27] LABS: INR 0.83; PROTHROMBIN TIME 11.9 seconds (11.9-14.5)
[2019-07-14 17:37] LABS: ALANINE AMINOTRANSFERASE 30 IU/L (0-55); ALBUMIN 3.7 g/dL (3.5-5.0); ALBUMIN/GLOBULIN RATIO 0.9 (0.8-2.0); ALKALINE PHOSPHATASE 95 IU/L (40-150); ANION GAP 15.5 mmol/L (8-16); BLOOD UREA NITROGEN 12 mg/dL (7-26); BUN/CREATININE RATIO 11 (6-25); CARBON DIOXIDE 22 mmol/L (22-29); CHLORIDE 99 mmol/L (98-107); CREATINE KINASE 90 IU/L (30-200); CREATININE, SERUM 1.14 mg/dL (0.72-1.25); EST GLOMERULAR FILTRATION RATE > 60 ML/MIN (60-); GLUCOSE 319 mg/dL (74-118); POTASSIUM 3.5 mmol/L (3.5-5.1); SODIUM 133 mmol/L (136-145)
--- NOTE | 2019-07-14 17:37 | Diagnostic Imaging Report ---
Examination: CT BRAIN WO CONTRAST History:Headache; right facial droop. Comparison studies:None Technique: Axial images were obtained from the skull base to the vertex. Coronal and sagittal images reconstructed from the axial data. Dose modulation, iterative reconstruction, and/or weight based adjustment of the mA/kV was utilized to reduce the radiation dose to as low as reasonably achievable. Intravenous contrast: None Findings: Scalp: No abnormalities. Bones: No fractures, blastic or lytic lesions. Brain sulci: Appropriate for age. Ventricles: Normal in size and configuration. No hydrocephalus. Extra-axial space: No abnormalities. Parenchyma: No masses, hemorrhage, or acute or chronic cortical based vascular insults.. Sellar/suprasellar region: No abnormalities. Craniocervical junction: Patent foramen magnum. No Chiari one malformation. Incidental findings: None. Impression: No acute intracranial abnormalities. Signed by: Dr. Adriane Spears M.D. on 07/14/2019 5:34 PM
[2019-07-14] MEDS ORDERED: ASPIRIN 81 MG CHEW TAB PO ONE (18:45)
[2019-07-14] MEDS ORDERED: DEXTROSE 50% SYRINGE 50 ML IV PRN (18:45)
[2019-07-14] MEDS ORDERED: SODIUM CHLORIDE 0.9% 1000ML 1,000 ML IV SCH (18:45)
[2019-07-14] MEDS: ACETAMINOPHEN 325 MG TAB PO PRN (19:00)
[2019-07-14] MEDS ORDERED: LABETALOL HCL 5 MG/ML 20ML VIAL IV PRN (19:30)
[2019-07-14] MEDS ORDERED: HYDRALAZINE HCL 20 MG/ML VIAL IV ONE (20:30)
--- NOTE | 2019-07-14 21:27 | NUR ---
PER DR BEDOYA, ER MD, PT IS OK WITH SBP'S 165-180'S, PT HAS HAD ELEVATED READINGS SINCE ARRIVING TO ER, DR. TIJERINA (DAY ER MD) AND DR BEDOYA BOTH AWARE OF ELEVATED READINGS, PT HAS BEEN TX'D WITH HTN IV NEEDS, SEE MAR. BAEZA RN (FLOOR NURSE) MADE AWARE OF READINGS
[2019-07-14 21:34] VITALS: BP 185/109
[2019-07-14] MEDS: INSULIN LISPRO 100 UNIT/1 ML 3ML VIAL SQ SCH (22:20)
[2019-07-14 22:38] VITALS: BP 185/109
--- NOTE | 2019-07-14 23:00 | NUR ---
SPOKE TO DR. CALZADA AT THIS TIME REGARDING PATIENT C/O PAIN 10/20 TO RIGHT SIDE OF FACE. NEW ORDER RECEIVED FOR TRAMADOL 50MG Q6H PRN
[2019-07-14] MEDS: TRAMADOL HCL 50 MG TAB PO PRN (23:29)
[2019-07-15 00:41] LABS: CREATINE KINASE MB 1.3 ng/mL (0-5.0)
[2019-07-15 00:58] VITALS: BP 170/92
--- NOTE | 2019-07-15 00:58 | NUR ---
NOTIFIED DR. Radha CALZADA REGARDING PATIENT C/O PAIN TO RT FACE 12/20. NEW ORDER RECEIVED FOR TORADOL 30MG IV Q6PRN
[2019-07-15] MEDS: KETOROLAC TROMETHAMINE 30 MG/ML VIAL IV PRN ×4 (01:15→23:13)
[2019-07-15] MEDS: ACETAMINOPHEN 325 MG TAB PO PRN ×3 (03:40→20:32)
[2019-07-15 04:52] VITALS: BP 171/97
[2019-07-15 05:56] LABS: BASOPHILS # (AUTO) 0.1 (0.0-0.1); BASOPHILS % 0.8 % (0.0-1.0); EOSINOPHILS # (AUTO) 0.1 (0.0-0.4); EOSINOPHILS % 1.5 % (0.0-6.0); HEMATOCRIT 43.6 % (38.2-49.6); HEMOGLOBIN 14.7 g/dL (14.0-18.0); LYMPHOCYTES # (AUTO) 2.5 (1.0-3.2); LYMPHOCYTES % 32.4 % (18.0-39.1); MEAN CORPUSCULAR HEMOGLOBIN 28.1 pg (28-32); MEAN CORPUSCULAR HGB CONC 33.7 g/dL (31-35); MEAN CORPUSCULAR VOLUME 83.2 fL (81-99); MONOCYTES # (AUTO) 0.5 (0.2-0.8); NEUTROPHILS # (AUTO) 4.5 (2.1-6.9); NEUTROPHILS % 58.8 % (38.7-80.0); PLATELET COUNT 191 x10e3/uL (140-360); RED BLOOD COUNT 5.24 x10e6/uL (4.3-5.7); RED CELL DISTRIBUTION WIDTH 14.3 % (11.7-14.4)
[2019-07-15 06:19] LABS: CREATINE KINASE MB 2.6 ng/mL (0-5.0)
[2019-07-15 06:44] LABS: ALANINE AMINOTRANSFERASE 29 IU/L (0-55); ALBUMIN 3.4 g/dL (3.5-5.0); ALBUMIN/GLOBULIN RATIO 0.9 (0.8-2.0); ALKALINE PHOSPHATASE 81 IU/L (40-150); ANION GAP 13.5 mmol/L (8-16); BLOOD UREA NITROGEN 12 mg/dL (7-26); BUN/CREATININE RATIO 12 (6-25); CALCIUM 8.9 mg/dL (8.4-10.2); CARBON DIOXIDE 24 mmol/L (22-29); CHLORIDE 101 mmol/L (98-107); CHOL/HDL RATIO 21.3 (3.9-4.7); CHOLESTEROL 491 MD/DL (0-199); CREATININE, SERUM 1.03 mg/dL (0.72-1.25); EST GLOMERULAR FILTRATION RATE > 60 ML/MIN (60-); GLUCOSE 174 mg/dL (74-118); HDL CHOLESTEROL 23 MG/DL (40-60); POTASSIUM 3.5 mmol/L (3.5-5.1); SODIUM 135 mmol/L (136-145)
[2019-07-15 07:18] LABS: TRIGLYCERIDES 2114 MG/DL (0-149)
[2019-07-15 08:00] VITALS: BP 174/110
[2019-07-15] MEDS: ASPIRIN 81 MG ENTERIC COATED PO SCH (08:26)
[2019-07-15] MEDS: INSULIN LISPRO 100 UNIT/1 ML 3ML VIAL SQ SCH ×4 (08:30→21:25)
[2019-07-15] MEDS: ONDANSETRON HCL INJ 2MG/ML 2ML 2 MG/ML VIAL IV PRN ×3 (09:00→21:21)
[2019-07-15] MEDS: TRAMADOL HCL 50 MG TAB PO PRN ×2 (10:25→16:47)
--- NOTE | 2019-07-15 10:37 | NUR ---
GAVE PACKET OF INFORMATION WITH COMMUNITY [employer]OURCES FOR ASSISTANCE WITH LOW TO NO INCOME TO PATIENT. RESOURCES THAT PATIENT MAY BE ABLE TO FOLLOW UP UPON DISCHARGE. PT EDUCATED ON EACH RESOURCE AND UNDERSTANDING HOW TO FOLLOW UP TO SEE IF QUALIFIED FOR EACH RESOURCE.
[2019-07-15] MEDS ORDERED: FARXIGA 5 MG PO SCH (11:00)
--- NOTE | 2019-07-15 12:00 | NUR ---
dr. lomeli notified of patients elevated blood pressure. medications changed and administered per orders.
[2019-07-15] MEDS: HYDRALAZINE HCL 20 MG/ML VIAL IV PRN ×3 (12:19→21:20)
[2019-07-15] MEDS: METFORMIN HCL 500 MG TAB PO SCH ×3 (13:31→20:31)
--- NOTE | 2019-07-15 13:51 | Diagnostic Imaging Report ---
MRI BRAIN WO HISTORY: Headache, high blood pressure COMPARISON: Head CT 07/14/2019, report from MRI of the brain 09/16/2016 TECHNIQUE: Sagittal T2, axial T2, axial T1, axial T2/FLAIR, axial gradient echo (or susceptibility weighted), coronal T2/FLAIR, and axial diffusion weighted MR images of the brain were obtained without contrast. Motion artifacts obscure some details. DISCUSSION: Scalp/bone marrow: Unremarkable. Brain sulci: Appropriate for patient's age. Ventricles: Normal in size and configuration. No hydrocephalus. Extra-axial spaces: No masses or fluid collections. Parenchyma: A few small T2/FLAIR hyperintense foci throughout the supratentorial white matter are likely chronic microvascular ischemic changes. Otherwise, no mass, hemorrhage, or acute vascular insults. Vessels: Normal flow voids in major arteries and veins. Sellar/Suprasellar region: No abnormalities. Craniocervical junction: No abnormalities. Incidental findings: Nonspecific mucosal thickening in bilateral hypoplastic sphenoid sinuses. Bilateral maxillary antrostomy, uncinectomy, and ethmoidectomy changes are present. IMPRESSION: 1. No acute intracranial abnormalities. 2. Mild supratentorial chronic microvascular ischemic change. Signed by: Dr. Phillip Cummins M.D. on 07/15/2019 1:48 PM
[2019-07-15 14:03] LABS: CREATINE KINASE MB 2.5 ng/mL (0-5.0)
[2019-07-15 16:00] VITALS: BP 187/103
[2019-07-15] MEDS ORDERED: HYDROCHLOROTHIAZIDE 25 MG TAB PO SCH (18:10)
[2019-07-15] MEDS ORDERED: LOSARTAN POTASSIUM 100 MG TAB PO SCH (18:10)
--- NOTE | 2019-07-15 18:36 | NUR ---
New medications ordered for blood pressure and administered to patient. Patient still complaining of head/eye pain. Dr. Elva alfaro.
--- NOTE | 2019-07-15 19:00 | NUR ---
RECEIVED PATIENT IN BEDSIDE SHIFT REPORT. PATIENT LAYING WITH ICE PACK TO R SIDE OF HEAD/FACE, PAIN REPORTED /. NO S&S OF DISTRESS NOTED. PATIENT STATED HE ATE EGGS WITH BREAKFAST BUT HAS NOT TRIED TO EAT SINCE D/T NAUSEA. BED LOCKED IN LOWEST POSITION, SIDE RAILS UPX2, CALL LIGHT IN REACH.
[2019-07-15 20:00] VITALS: BP 181/76
[2019-07-15 20:49] VITALS: BP 181/76
[2019-07-16] VITALS (9 sets, daily range): BP systolic 141–197; BP diastolic 88–116
[2019-07-16] MEDS: TRAMADOL HCL 50 MG TAB PO PRN (01:50)
[2019-07-16] MEDS ORDERED: NON-FORMULARY MEDICATION (Losartan/Hydrochlorothiazide (Losartan-Hctz 50-12.5 Mg Tab) 1 TA PO SCH (09:00)
[2019-07-16] MEDS ORDERED: NON-FORMULARY MEDICATION (Ascorbic Acid (Vitamin C) 1,000 MG) PEG SCH (09:00)
[2019-07-16] MEDS ORDERED: LOSARTAN POTASSIUM 25 MG TAB PO SCH (09:00)
[2019-07-16] MEDS: KETOROLAC TROMETHAMINE 30 MG/ML VIAL IV PRN ×3 (09:20→23:24)
[2019-07-16] MEDS: ONDANSETRON HCL INJ 2MG/ML 2ML 2 MG/ML VIAL IV PRN ×3 (09:20→19:34)
[2019-07-16] MEDS ORDERED: DICYCLOMINE HCL10 MG (09:47)
[2019-07-16] MEDS ORDERED: XYZAL5 MG (09:47)
[2019-07-16] MEDS ORDERED: CRESTOR10 MG (09:47)
[2019-07-16] MEDS: INSULIN LISPRO 100 UNIT/1 ML 3ML VIAL SQ SCH ×4 (09:47→21:38)
[2019-07-16] MEDS ORDERED: PROTONIX40 MG PO (09:47)
[2019-07-16] MEDS ORDERED: POTASSIUM CHLO20 ME1 (09:47)
[2019-07-16] MEDS: ASPIRIN 81 MG ENTERIC COATED PO SCH (09:48)
[2019-07-16] MEDS: LOSARTAN POTASSIUM 100 MG TAB PO SCH (09:48)
[2019-07-16] MEDS: HYDROCHLOROTHIAZIDE 25 MG TAB PO SCH (09:48)
[2019-07-16] MEDS: ASCORBIC ACID 500 MG TAB PO SCH (09:48)
[2019-07-16] MEDS: FENOFIBRATE 145 MG TAB PO SCH (09:48)
[2019-07-16] MEDS: ESCITALOPRAM OXALATE 10 MG TAB PO SCH (09:48)
[2019-07-16] MEDS: AMLODIPINE BESYLATE 5 MG TAB PO SCH ×2 (09:48→16:25)
[2019-07-16] MEDS: FARXIGA 5 MG PO SCH (09:48)
[2019-07-16] MEDS: METFORMIN HCL 500 MG TAB PO SCH ×4 (09:48→21:37)
[2019-07-16] MEDS: HYDRALAZINE HCL 20 MG/ML VIAL IV PRN (11:21)
[2019-07-16] MEDS: HYDROCODONE/APAP 7.5MG-325MG 1 EA TAB PO PRN ×2 (11:36→19:34)
[2019-07-16] MEDS: ACETAMINOPHEN 325 MG TAB PO PRN (12:31)
[2019-07-16] MEDS: METOPROLOL TARTRATE 50 MG TAB PO SCH ×2 (12:32→21:38)
[2019-07-16] MEDS ORDERED: GADOBENATE DIMEGLUMINE 1 ML IV ONE (13:36)
[2019-07-16] MEDS: INDOMETHACIN 25 MG CAP PO SCH ×2 (15:26→21:37)
--- NOTE | 2019-07-16 15:30 | Diagnostic Imaging Report ---
MRI BRAIN WITH CONTRAST HISTORY: Closed right eye COMPARISON: Head CT 07/14/2019, MRI brain 07/15/2019 TECHNIQUE: Postcontrast axial and sagittal and coronal T1. Contrast: 20 cc MultiHance. DISCUSSION: Scalp/bone marrow: Unremarkable. Brain sulci: Appropriate for patient's age. Ventricles: Normal in size and configuration. No hydrocephalus. Extra-axial spaces: No masses or fluid collections. Parenchyma: No mass, hemorrhage, or acute vascular insults. No abnormal enhancement. Vessels: Normal flow voids in major arteries and veins. Sellar/Suprasellar region: No abnormalities. Craniocervical junction: No abnormalities. . IMPRESSION: 1. No acute intracranial abnormalities. 2. No change from previous examination. Signed by: DR Jerry Alfonso M.D. on 07/16/2019 3:27 PM
[2019-07-16 15:54] LABS: FREE THYROXINE INDEX 2.9489 (1.4-3.8); THYROID STIMULATING HORMONE 1.418 uIU/mL (0.350-4.940)
--- NOTE | 2019-07-16 19:00 | NUR ---
RECEIVED PATIENT IN BEDSIDE SHIFT REPORT. PATIENT RESTING IN BED AT THIS TIME WITH ICE PACK OVER RIGHT EYE. STILL UNABLE TO OPEN R EYE D/T PAIN AND DISTURBED VISION. PATIENT REPORTS FEELING NAUSEATED. NO OTHER S&S OF DISTRESS NOTED. BED LOCKED IN LOWEST POSITION, SIDE RAILS UPX2, CALL LIGHT IN REACH.
[2019-07-16] MEDS ORDERED: CRESTOR 10MG PO SCH (21:00)
--- NOTE | 2019-07-16 21:17 | Consultation ---
DATE OF CONSULTATION: Neurology Consultation HISTORY OF PRESENT ILLNESS: Mr. Cantu is a 48-year-old male with history of hypertension and diabetes, who comes in because of right cranial nerve III palsy. It is a peripheral nerve palsy, nonessential etiology. Onset was yesterday morning after several weeks of headaches, right-sided hemifacial pain. The patient is a poorly-controlled diabetic with chronically high serum glucose. He also has hyperlipidemia and hypertension, which is poorly controlled as well as hypertriglyceridemia. He states that his blood pressure has been running high. He has chest pain intermittently as well as headaches fairly constantly for about 3 weeks and he woke up with visual disturbance and as mentioned cranial nerve III palsy. SOCIAL HISTORY: The patient reports generally poor support system, but denies tobacco and endorses occasional alcohol use. REVIEW OF SYSTEMS: Headache, chest pain, blurry vision, visual disturbances, are all chronic. Otherwise, 14-point review of systems is negative. PHYSICAL EXAMINATION: NEUROLOGIC: He has cranial nerve III palsy on the right. His face reveals a slightly edematous and injected conjunctiva on the right. His strength is 5/5. Reflexes symmetric, but diminished. There is no nuchal rigidity. No ataxia on exam. Speech is clear, nondysarthric. Sensory in arms, legs, and face is grossly normal. ABDOMEN: Soft. CARDIOVASCULAR: Regular rate and rhythm. PULMONARY: Clear to auscultation. ASSESSMENT: Mr. Cantu comes in with isolated cranial nerve III palsy, peripheral as well as a headache in the right side of his head. The headache is chronic. The cranial III palsy is fairly acute. RECOMMENDATION: We are going to do an MRI and check a serum MARSHALL level to evaluate for possible sarcoidosis with contrast. He is going to need better glycemic control. We will give indomethacin for the headaches, if that breaks it, this which would be acute responsive to indomethacin. There is no evidence of stroke; however, his triglycerides are elevated, so he needs to be on a statin medication. Otherwise, we will continue monitor the patient as needed. For the breakthrough headaches, Pain Management might be helpful in that regard. ERI HAMMONDS MD RR/MODL /[id number]
--- NOTE | 2019-07-16 21:39 | NUR ---
PATIENT STATES THE NORCO GIVEN RECENTLY GAVE HIM THE BEST PAIN RELIEF SO FAR. WILL CONTINUE TO MONITOR.
--- NOTE | 2019-07-16 23:25 | NUR ---
PATIENT STATED THAT THE INDOCIN DID HELP WITH HIS PAIN, TOOK IT FROM A 9 TO A 6. REQUESTED FURTHER PAIN MEDS TO PREVENT THE PAIN FROM INCREASING.
[2019-07-17] MEDS: ONDANSETRON HCL INJ 2MG/ML 2ML 2 MG/ML VIAL IV PRN (04:04)
[2019-07-17] MEDS: HYDROCODONE/APAP 7.5MG-325MG 1 EA TAB PO PRN ×2 (04:04→12:47)
[2019-07-17 04:35] VITALS: BP 160/88
[2019-07-17] MEDS: METOPROLOL TARTRATE 50 MG TAB PO SCH ×2 (06:16→13:00)
--- NOTE | 2019-07-17 06:17 | NUR ---
PATIENT STATES NO PAIN 2 HOURS AFTER RECEIVING NORCO. PATIENT REPORTS PERSISTING DOUBLE VISION IN R EYE, EVEN WITH NO PAIN.
--- NOTE | 2019-07-17 06:56 | NUR ---
RECEIVED BEDSIDE SHIFT REPORT FROM OFF GOING NURSE. PATIENT IS RESTING IN BED, NO ACUTE DISTRESS NOTED AT THIS TIME. CALL LIGHT WITHIN REACH. BED IN THE LOWEST POSITION.
[2019-07-17] MEDS ORDERED: PANTOPRAZOLE SOD 40 MG TABEC PO SCH (07:30)
[2019-07-17 08:02] VITALS: BP 132/80
[2019-07-17 08:05] VITALS: BP 132/80
[2019-07-17] MEDS: INSULIN LISPRO 100 UNIT/1 ML 3ML VIAL SQ SCH ×2 (08:05→11:14)
[2019-07-17] MEDS: FARXIGA 5 MG PO SCH (08:06)
[2019-07-17] MEDS: ASPIRIN 81 MG ENTERIC COATED PO SCH (08:10)
[2019-07-17] MEDS: LOSARTAN POTASSIUM 100 MG TAB PO SCH (08:10)
[2019-07-17] MEDS: HYDROCHLOROTHIAZIDE 25 MG TAB PO SCH (08:10)
[2019-07-17] MEDS: ESCITALOPRAM OXALATE 10 MG TAB PO SCH (08:11)
[2019-07-17] MEDS: METFORMIN HCL 500 MG TAB PO SCH ×2 (08:11→13:00)
[2019-07-17] MEDS: ASCORBIC ACID 500 MG TAB PO SCH (08:11)
[2019-07-17] MEDS: AMLODIPINE BESYLATE 5 MG TAB PO SCH (08:11)
[2019-07-17] MEDS: FENOFIBRATE 145 MG TAB PO SCH (08:11)
[2019-07-17] MEDS: INDOMETHACIN 25 MG CAP PO SCH (08:11)
[2019-07-17] MEDS ORDERED: OMEPRAZOL/SOD BICARB 40MG PWDR PKT PO SCH (09:00)
[2019-07-17 11:15] VITALS: BP 139/84
--- NOTE | 2019-07-17 14:57 | NUR ---
PAGED DR. HAMMONDS TO SEE IF PATIENT IS CLEARED FOR DISCHARGE PER DR. Radha CALZADA.
--- NOTE | 2019-07-17 14:58 | NUR ---
SPOKE TO DR. HAMMONDS, PATIENT CAN BE DISCHARGE SINCE HEADACHE IS BETTER. FOLLOW UP WITH MD NEXT WEEK.
[2019-07-17 15:53] VITALS: BP 123/76
[2019-07-17] MEDS ORDERED: LOSARTAN POTAS100 MG PO (15:54)
[2019-07-17] MEDS ORDERED: METOPROLOL TART50 MG PO (15:54)
[2019-07-17] MEDS ORDERED: AMLODIPINE BESYL5 MG PO (15:54)
[2019-07-17] MEDS ORDERED: CRESTOR20 MG PO (15:55)
--- NOTE | 2019-07-17 16:16 | NUR ---
PATIENT ASKED NURSE TO ASK MD IF HE CAN GET A PRESCRIPTION FOR NORCO SINCE IS THE ONLY PAIN PILL THAT HAS WORKED FOR HIM. NURSE CALLED MD AND NOTIFIED OF WHAT PATIENT IS STATING. PER MD, HE DOES NOT GIVE PRESCRIPTIONS FOR NORCO, PATIENT CAN TAKE OVER THE COUNTER MEDICATIONS FOR PAIN. PATIENT NOTIFIED.
--- NOTE | 2019-07-17 17:00 | NUR ---
RECEIVED DC ORDER FROM DR. Radha CALZADA. PATIENT IS IN STABLE CONDITION. IV LINE TO LEFT ANTECUBITAL DISCONTINUED WITH TIP INTACT, PRESSURE APPLIED TO SITE, NO BLEEDING NOTED. DISCHARGE TEACHING PROVIDED TO PATIENT, HE VERBALIZED UNDERSTANDING. DISCHARGE FOLDER WITH PAPERWORK AND PRESCRIPTIONS ON HAND. PATIENT REQUESTED PAIN MEDICATION (NORCO) PER DR. Radha CALZADA PATIENT CAN TAKE OVER THE COUNTER PAIN RELIEVER, CANNOT GIVE NORCO. NOTIFIED PATIENT, HE VERBALIZED UNDERSTANDING. PATIENT ACCOMPANIED TO PRIVATE AUTO VIA WHEELCHAIR BY STAFF.
== END 2019-07-17 17:00 | disposition home or self-care (01) | DRG 123 ==
LOC: ER 16:43 → ERHOLD 18:51 → MED/SURG 21:38 → OBSVTOIN 07-16 11:57
DX: H49.01 Third [oculomotor] nerve palsy, right eye (principal); I16.9 Hypertensive crisis, unspecified; E11.65 Type 2 diabetes mellitus with hyperglycemia; I10 Essential (primary) hypertension; H53.2 Diplopia; Z88.0 Allergy status to penicillin; E78.5 Hyperlipidemia, unspecified; Z79.82 Long term (current) use of aspirin; Z79.84 Long term (current) use of oral hypoglycemic drugs
CPT/HCPCS: 36415; 70450; 70551; 70552; 80053; 80061; 82164; 82550; 82553; 82948; 83036; 84436; 84443; 84479; 84484; 85025; 85610; 85730; 87635; 93005; 93306; 93880; 99284; G0378; J0360; J1885; J2405; J7030